=== PATIENT | female | born 1995 | race Caucasian/White ===

== ENCOUNTER 2019-11-17 17:00 | Emergency (ER) | payer OTHER ==
[2019-11-17 17:53] LABS: BASOPHILS % (AUTO) 0.5 %; EOSINOPHILS # (AUTO) 0.1 10^3/uL (0.0-0.7); EOSINOPHILS % (AUTO) 1.5 %; HGB - HEMOGLOBIN 13.9 g/dL (12.0-16.0); LYMPHOCYTES # (AUTO) 3.2 10^3/uL (1.5-3.5); LYMPHOCYTES % (AUTO) 40.3 %; MEAN CORPUSCULAR HEMOGLOBIN 31.2 pg (27.0-31.0); MEAN CORPUSCULAR HGB CONC 32.9 g/dL (32.0-36.0); MEAN CORPUSCULAR VOLUME 94.8 fL (81.0-99.0); MEAN PLATELET VOLUME 9.9 fL (7.9-10.8); MONOCYTES # (AUTO) 0.6 10^3/uL (0.0-1.0); MONOCYTES % (AUTO) 7.2 %; NEUTROPHILS % (AUTO) 50.2 %; PLT - PLATELET COUNT 232 10^3/uL (130-450); RED BLOOD COUNT 4.46 10^6/uL (4.20-5.40); RED CELL DISTRIBUTION WIDTH 11.6 % (12.0-15.0)
[2019-11-17 18:14] LABS: ALBUMIN 4.1 g/dL (3.2-5.5); ALBUMIN/GLOBULIN RATIO 1.3 (1.0-2.2); BILIRUBIN,TOTAL 0.5 mg/dL (0.2-1.0); CALCIUM 9.5 mg/dL (8.5-10.3); TOTAL PROTEIN 7.3 g/dL (6.7-8.2)
--- NOTE | 2019-11-17 19:40 | ED Physician Documentation ---
PD HPI SYNCOPE - Stated complaint Stated Complaint: FAINTING/FALL, BARRON, NECK PX - Chief complaint Chief Complaint: Neuro - History obtained from History obtained from: Patient - History of Present Illness Witnessed: Witnessed Timing - onset: Today Duration: Seconds Preceding symptoms: Diaphoresis, Light headed, Generalized weakness Associated symptoms: No: Seizure, Incontinant of urine, Incontinant of stool, Headache, Vision changes, Chest pain, Palpitations, Diaphoresis, Dyspnea, Nausea / vomiting, Abdominal pain Contributing factors: None Injury occurred: Fell, None Pain level max: 0 Pain level now: 0 Similar symptoms before: Has not had sx before Recently seen: Not recently seen - Additional information Additional information: 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 rapid return to baseline and presents asymptomatic. Review of Systems Constitutional: reports: Reviewed and negative Eyes: reports: Reviewed and negative Cardiac: reports: Reviewed and negative Respiratory: reports: Reviewed and negative GI: reports: Reviewed and negative : denies: Now EGA Musculoskeletal: reports: Reviewed and negative Neurologic: reports: Syncope. denies: Generalized weakness, Headache, Head injury PD PAST MEDICAL HISTORY - Past Medical History Past Medical History: No - Past Surgical History Past Surgical History: No - Allergies Allergies/Adverse Reactions: Allergies Allergy/AdvReac Type Severity Reaction Status Date / Time No Known Drug Allergies Allergy Verified 11/17/19 17:20 PD ED PE NORMAL - Vitals Vital signs reviewed: Yes - General General: Alert and oriented X 3, No acute distress, Well developed/nourished - HEENT HEENT: Atraumatic, PERRL, EOMI - Neck Neck: Supple, no meningeal sign, No bony TTP - Cardiac Cardiac: RRR, No murmur - Respiratory Respiratory: No respiratory distress, Clear bilaterally - Neuro Neuro: Alert and oriented X 3, 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 adviser 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, No motor deficit, No sensory deficit, Normal speech Eye Opening: Spontaneous Motor: Obeys Commands Verbal: Oriented GCS Score: 15 Results - Vitals Vitals: Oxygen O2 Source Room air - Labs Labs: Laboratory Tests 11/17/19 11/17/19 11/17/19 17:35 17:39 17:39 WBC 8.0 RBC 4.46 Hgb 13.9 Hct 42.3 MCV 94.8 MCH 31.2 H MCHC 32.9 RDW 11.6 L Plt Count 232 MPV 9.9 Neut # (Auto) 4.0 Lymph # (Auto) 3.2 [place] # (Auto) 0.6 Eos # (Auto) 0.1 Baso # (Auto) 0.0 Absolute Nucleated RBC 0.00 Nucleated RBC % 0.0 Sodium 137 Potassium 4.0 Chloride 104 Carbon Dioxide 25 Anion Gap 8.0 BUN 16 Creatinine 1.0 Estimated GFR (MDRD) 68 L Glucose 90 Calcium 9.5 Total Bilirubin 0.5 AST 20 ALT 19 Alkaline Phosphatase 31 L Troponin I High Sens Total Protein 7.3 Albumin 4.1 Globulin 3.2 Albumin/Globulin Ratio 1.3 Lipase 37 TSH Urine Color YELLOW Urine Clarity CLEAR Urine pH 6.5 Ur Specific [place] 1.020 Urine Protein NEGATIVE Urine Glucose (UA) NEGATIVE Urine Ketones NEGATIVE Urine Occult Blood NEGATIVE Urine Nitrite NEGATIVE Urine Bilirubin NEGATIVE Urine Urobilinogen 0.2 (NORMAL) Ur Leukocyte Esterase NEGATIVE Ur Microscopic Review NOT INDICATED Urine Culture Comments NOT INDICATED Urine HCG, Qual NEGATIVE 11/17/19 11/17/19 17:39 17:39 WBC RBC Hgb Hct MCV MCH MCHC RDW Plt Count MPV Neut # (Auto) Lymph # (Auto) [place] # (Auto) Eos # (Auto) Baso # (Auto) Absolute Nucleated RBC Nucleated RBC % Sodium Potassium Chloride Carbon Dioxide Anion Gap BUN Creatinine Estimated GFR (MDRD) Glucose Calcium Total Bilirubin AST ALT Alkaline Phosphatase Troponin I High Sens < 2.3 L Total Protein Albumin Globulin Albumin/Globulin Ratio Lipase TSH 2.29 Urine Color Urine Clarity Urine pH Ur Specific [place] Urine Protein Urine Glucose (UA) Urine Ketones Urine Occult Blood Urine Nitrite Urine Bilirubin Urine Urobilinogen Ur Leukocyte Esterase Ur Microscopic Review Urine Culture Comments Urine HCG, Qual PD MEDICAL DECISION MAKING - ED course Complexity details: reviewed results, re-evaluated patient, considered differential, d/w patient Departure - Departure Disposition: 01 Home, Self Care Clinical Impression: Syncope Condition: Good Instructions: ED Fainting Unkn Cause Discharge Date/Time: 11/17/19 20:27
[2019-11-17 19:46] LABS: BILIRUBIN,URINE NEGATIVE (NEGATIVE); GLUCOSE, URINE (UA) NEGATIVE (NEGATIVE); KETONES,URINE (UA) NEGATIVE (NEGATIVE); LEUKOCYTE ESTERASE, URINE NEGATIVE (NEGATIVE); NITRITE,URINE NEGATIVE (NEGATIVE); OCCULT BLOOD,URINE NEGATIVE (NEGATIVE); PH,URINE 6.5 PH (5.0-7.5); PROTEIN,URINE NEGATIVE (NEGATIVE); UROBILINOGEN,URINE 0.2 (NORMAL) E.U./dL (NORMAL)
[2019-11-17 19:50] LABS: CLARITY,URINE CLEAR (CLEAR); HCG UR QUAL NEGATIVE
[2019-11-17 20:11] VITALS: BP 117/74
== END 2019-11-17 20:27 | disposition home or self-care (01) ==
LOC: ED 17:00
DX: R55 Syncope and collapse (principal)
CPT/HCPCS: 36415; 80053; 81001; 81003; 81025; 83690; 84443; 84484; 85025; 87086; 93005; 99284

== ENCOUNTER 2021-03-09 20:07 | Emergency (ER) | payer OTHER ==
--- NOTE | 2021-03-09 21:03 | ED Physician Documentation ---
History of Present Illness - Stated complaint Stated Complaint: PELVIC PX - Chief complaint Chief Complaint: Abd Pain - History obtained from History obtained from: Patient - Additonal information Additional information: Patient comes emergency department chief complaint of left pelvic pain for the last couple of days. Patient states that she feels a cramping, pressure, bloated feeling in the area with intermittent pulses of a stabbing pain. Patient denies any vaginal discharge, bleeding, or fluid leakage. She states that she is not known to be . No dysuria or fevers. No nausea or vo miting. No change in her bowel habits, though she does note some discomfort in the same area when she has a bowel movement. Patient states this feels very similar to when she had an ovarian cyst on the right few years ago. No other complaints at this time. Review of Systems Ten Systems: 10 systems reviewed and negative Constitutional: reports: Reviewed and negative Eyes: reports: Reviewed and negative Ears: reports: Reviewed and negative Nose: reports: Reviewed and negative Throat: reports: Reviewed and negative Cardiac: reports: Reviewed and negative Respiratory: reports: Reviewed and negative GI: reports: Abdominal Pain. denies: Nausea, Vomiting : reports: Reviewed and negative. 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 : None HEENT: None Psych: Depression, Anxiety, Other Musculoskeletal: None Derm: None - Past Surgical History Past Surgical History: Yes HEENT: Other - Present Medications Home Medications: Ambulatory Orders Medication Instructions Recorded Confirmed Flaxseed Oil 1 cap PO DAILY 03/09/21 03/09/21 Melatonin/Pyridoxine [Melatonin 5 1 tab PO QPM PRN 03/09/21 03/09/21 mg Tablet] Sertraline [Zoloft] 25 mg PO DAILY 03/09/21 03/09/21 Tazarotene [Tazorac] 1 applic TOP DAILY 03/09/21 03/09/21 - Allergies Allergies/Adverse Reactions: Allergies Allergy/AdvReac Type Severity Reaction Status Date / Time No Known Drug Allergies Allergy Verified 03/09/21 20:09 - Social History Does the pt smoke?: No Smoking Status: Never smoker Does the pt drink ETOH?: Yes Does the pt have substance abuse?: No - Immunizations Immunizations are current?: Yes - POLST Patient has POLST: No PD ED PE NORMAL - Vitals Vital signs reviewed: Yes - General General: Alert and oriented X 3, No acute distress - HEENT HEENT: Atraumatic, PERRL, EOMI, Moist mucous membranes - Neck Neck: Supple, no meningeal sign - Cardiac Cardiac: RRR, No murmur - Respiratory Respiratory: No respiratory distress, Clear bilaterally - Abdomen Abdomen: Soft, Non distended, Other (Left pelvic tenderness, no rebound or guarding) - Back Back: No CVA TTP - Derm Derm: Normal color, Warm and dry, No rash - Extremities Extremities: No deformity, No edema, No calf tenderness / cord - Neuro Neuro: Alert and oriented X 3, child custody evaluator 2-12 intact, Normal speech - Psych Psych: Normal mood, Normal affect Results - Vitals Vitals: Vital Signs - 24 hr 03/09/21 20:09 Temperature 36.5 C Heart Rate 72 Respiratory 16 Rate Blood Pressure 140/89 H O2 Saturation 100 Oxygen O2 Source Room air - Rads (name of study) US pelvis Radiology: Prelim report reviewed (Hemorrhagic left ovarian cyst, no torsion.) PD MEDICAL DECISION MAKING - ED course Complexity details: reviewed results, re-evaluated patient, considered differential, d/w patient ED course: Patient was worked up with urinalysis, test and ultrasound of the pelvis. Departure - Departure Disposition: 01 Home, Self Care Clinical Impression: Ovarian cyst Qualifiers: Laterality: left Qualified Code(s): N83.202 - Unspecified ovarian cyst, left side Condition: Stable Instructions: ED Cyst Ovarian Comments: Your ultrasound shows a left ovarian cyst. Most likely because of the pain you have been having. Ovarian cysts do tend to fluctuate in size depending on what point you were in your cycle, and it is most likely that the symptoms will down. However, if you have escalating pain over the next few weeks or you do not notice any resolution of symptoms, you should consider following up with your converter operator to discuss other treatment options. If you develop severe, unremitting pain that lasts for more than 10 minutes, please come to the emergency department immediately.
[2021-03-09 22:15] VITALS: BP 135/84
--- NOTE | 2021-03-10 08:22 | Ultrasound Report ---
PROCEDURE: Pelvic w/Transvag+Doppler Comp INDICATIONS: pelvic pain, R TECHNIQUE: Real-time scanning was performed of the pelvic organs, with image documentation. Additional endovagi nal scanning was necessary due to incomplete visualization of the adnexal and endometrial structures by transabdominal scanning. COMPARISON: None. FINDINGS: No pathologic free abdominal fluid. Uterus: Uterus is normal in size at 7.4 x 3.7 x 4.3 cm. The endometrium measures 7.1 mm in combined thickness. There is no endometrial mass or fluid. No discrete uterine fibroid. Intrauterine device i s noted in its normal central endometrial location. Ovaries: Right ovary measures 3.9 x 4 x 2.1 cm in size and is within normal limits. Left ovary measu res 4.9 x 3 x 2.5 cm in size with complex appearing cystic structure within left ovary measures 2.6 x 2.7 x 2.6 cm in size. Small amount of free fluid in left adnexa is seen. Normal arteriovenous flow s een in bilateral ovaries on color Doppler images. IMPRESSION: 1. No evidence of ovarian torsion. No solid appearing ovarian lesion. Likely hemorrhagic cyst in left ovary as above with small amount of free fluid in left adnexa. 2. Normal-appearing uterus and endometrium. Intrauterine device is seen in its normal central endomet rial location. Agree with preliminary reading. Reviewed by: Everette Brito MD on 03/10/2021 8:21 AM PDT Approved by: Everette Brito MD on 03/10/2021 8:21 AM PDT Station ID: [id number]
== END 2021-03-09 22:00 | disposition home or self-care (01) ==
LOC: ED 20:07
DX: N83.202 Unspecified ovarian cyst, left side (principal)
CPT/HCPCS: 93975; 99284

== ENCOUNTER 2021-09-20 11:17 | Emergency (ER) | payer OTHER ==
[2021-09-20 11:56] VITALS: BP 134/92
[2021-09-20] MEDS ORDERED: LIDOCAINE 1% 2 ML VIAL SUBQ STA (12:16)
--- NOTE | 2021-09-20 12:59 | ED Physician Documentation ---
PD HPI UPPER EXT INJURY - Stated complaint Stated Complaint: R INDEX FINGER INJURY - Chief complaint Chief Complaint: Laceration - History obtained from History obtained from: Patient - Additonal information Additional information: She hurt her right index finger while chopping wood a few days ago. A piece of wood hit it on the dorsum of the right index finger at the level of the PIP she is up-to-date on tetanus. 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 : None HEENT: None Psych: Depression, Anxiety, Other Musculoskeletal: None Derm: None - Past Surgical History Past Surgical History: Yes HEENT: Other - Present Medications Home Medications: Ambulatory Orders Medication Instructions Recorded Confirmed HYDROcod/ACETAM 5/325 [[place] 5/325] 1 - 2 tablet PO Q6H PRN #10 tablet 03/09/21 Melatonin/Pyridoxine [Melatonin 5 1 tab PO QPM PRN 03/09/21 03/09/21 mg Tablet] Sertraline [Zoloft] 25 mg PO DAILY 03/09/21 03/09/21 Tazarotene [Tazorac] 1 applic TOP DAILY 03/09/21 03/09/21 flaxseed oiL [Flaxseed Oil] 1 cap PO DAILY 03/09/21 03/09/21 - Allergies Allergies/Adverse Reactions: Allergies Allergy/AdvReac Type Severity Reaction Status Date / Time No Known Drug Allergies Allergy Verified 09/20/21 11:52 - Social History Does the pt smoke?: No Smoking Status: Never smoker Does the pt drink ETOH?: Yes Does the pt have substance abuse?: No - Immunizations Immunizations are current?: Yes - POLST Patient has POLST: No PD ED PE NORMAL - Vitals Vital signs reviewed: Yes - General General: Alert and oriented X 3, No acute distress - Extremities Extremities: Other (All laceration on the dorsum the right index finger PIP that is really not deep enough to harbor a foreign body and she has no foreign body sensation. She has full range of motion albeit with some pain at the PIP. No deformity.) - Neuro Neuro: Alert and oriented X 3, Normal speech Results - Vitals Vitals: Vital Signs - 24 hr 09/20/21 11:52 Temperature 37 C Heart Rate 72 Respiratory 16 Rate Blood Pressure 134/92 H O2 Saturation 99 Oxygen O2 Source Room air - Rads (name of study) 3v R index finger Radiology: EMP read contemporaneously (no frx) Procedures - Splint (location) R index finger Splint applied by: Tech Type of splint: Metal foam finger splint Other: Patient tolerated well, No complications, Neurovascular intact Departure - Departure Disposition: 01 Home, Self Care Clinical Impression: Contusion of right index finger Qualifiers: Encounter type: initial encounter Damage to nail status: without damage Qualified Code(s): S60.021A - Contusion of right index finger without damage to nail, initial encounter Abrasion of right index finger Qualifiers: Encounter type: initial encounter Qualified Code(s): S60.410A - Abrasion of right index finger, initial encounter Condition: Good Record reviewed to determine appropriate education?: Yes Instructions: ED Abrasion Comments: No fracture on x-ray, continue to splint as needed for comfort and for the abrasion just soap and water and antibiotic ointment. Return for new or worsening symptoms. Discharge Date/Time: 09/20/21 13:10
--- NOTE | 2021-09-20 13:06 | XRAY Report ---
PROCEDURE: Finger(s) RT INDICATIONS: Trauma TECHNIQUE: AP hand, 2 views of the second finger(s) acquired. COMPARISON: None FINDINGS: Bones: No fractures or dislocations. No suspicious bony lesions. Soft tissues: No suspicious soft tissue calcifications. IMPRESSION: No gross acute second finger fracture or dislocation. No radiopaque foreign body is seen. Reviewed by: Everette Brito MD on 09/20/2021 1:04 PM [facility] Approved by: Everette Brito MD on 09/20/2021 1:04 PM [facility] Station ID: [id number]
== END 2021-09-20 13:10 | disposition home or self-care (01) ==
LOC: ED 11:17
DX: S60.410A Abrasion of right index finger, initial encounter (principal); W45.8XXA Other foreign body or object entering through skin, initial encounter; Y93.H9 Activity, other involving exterior property and land maintenance, building and construction
CPT/HCPCS: 99282; 99283

== ENCOUNTER 2021-11-15 08:03 | Outpatient (CLI) | payer OTHER ==
[2021-11-15] MEDS ORDERED: GADOBUTROL 10 MMOL/10 ML VIAL ONE (08:12)
[2021-11-15] MEDS ORDERED: GADOBUTROL 10 MMOL/10 ML VIAL IVP ONE (16:14)
--- NOTE | 2021-11-15 16:50 | MRI Report ---
PROCEDURE: Brain W/WO INDICATIONS: ELEVATED PROLACTIN CONTRAST: IV CONTRAST: Gadavist ml: 79 TECHNIQUE: Noncontrast sagittal and axial FLAIR, axial gradient echo, axial diffusion and ADC through the brain. Thin-slice sagittal and coronal T1 spin echo, coronal T2 fast spin echo through the pituitary. Aft er the administration contrast, optional dynamic coronal T1 spin echo, thin-slice coronal and sagitta l T1 spin echo images through the pituitary fossa; axial T1 spin echo with fat saturation through the brain. COMPARISON: None. FINDINGS: Image quality: Excellent. Pituitary Gland: Pituitary gland is normal in size and contour for a female of reproductive age. Pos terior pituitary bright spot is normally situated. There is a small, approximately 2 mm focus of slig htly delayed postcontrast enhancement in the inferior left perimedian margin of the pituitary gland c oncerning for a micro-adenoma. The pituitary infundibulum is midline and demonstrates normal postcont rast enhancement. Optic chiasm is normal. No suprasellar masses. Cavernous sinus enhances normally. CSF Spaces: Ventricles are normal in size and shape. Basal cisterns are patent. No extra-axial flu id collections. Brain: No intracranial bleeds or mass effects. No abnormal intracranial enhancement. Phillip-white ma tter interface is intact. Diffusion weighted images demonstrate no acute ischemic insults. Brainste m is normal. Normal intravascular flow voids are present. Dural sinuses and shape normal postcontras t enhancement. Incidental note made of a Skull and face: Calvarial marrow is normal in signal. Orbits appear normal. Sinuses: Sinuses and mastoids are clear. IMPRESSION: Small 2 mm focus of slightly delayed postcontrast enhancement in the inferior and left p aramedian pituitary gland suspicious for pituitary microadenoma.. Reviewed by: Emily Fletcher MD, PhD on 11/15/2021 4:48 PM PST Approved by: Emily Fletcher MD, PhD on 11/15/2021 4:48 PM PST Station ID: [id number]
== END 2021-11-15 08:04 | disposition home or self-care (01) ==
LOC: DI 08:03
PROVIDERS: ATTEND Student in an Organized Health Care Education/Training Program
DX: R90.89 Other abnormal findings on diagnostic imaging of central nervous system (principal)
CPT/HCPCS: 70553; A9585

== ENCOUNTER 2022-10-09 07:05 | Outpatient (CLI) | payer OTHER ==
[~2022-10-09 07:05] MED LIST: GADOBUTROL 10 MMOL/10 ML VIAL ONE; GADOBUTROL 7.5 MMOL/7.5 ML VIAL ONE
[2022-10-09] MEDS ORDERED: GADOBUTROL 7.5 MMOL/7.5 ML VIAL IVP ONE (13:59)
--- NOTE | 2022-10-09 15:49 | MRI Report ---
PROCEDURE: BRAIN W/WO INDICATIONS: PITUITARY MICROADENOMA TECHNIQUE: Noncontrast axial T1 spin echo, axial T2 fast spin echo, sagittal and axial FLAIR, coronal T2 fast sp in echo, axial gradient echo, axial diffusion and ADC through the brain. After the administration of contrast, axial and coronal T1 spin echo with fat saturation through the brain. COMPARISON: 11/15/2021 FINDINGS: Image quality: Excellent. CSF spaces: Basal cisterns are patent. No extra-axial fluid collections. Ventricles are normal in size and shape. Brain: No midline shift. No intracranial bleeds or masses. No abnormal intracranial enhancement. There is cerebral volume loss for age. There is periventricular white matter chronic small vessel is chemic change. The brainstem appears normal. Diffusion-weighted images demonstrate no acute ischemi c insults. No chronic ischemic insults. Normal intravascular flow voids are present. Skull and face: Calvarial marrow is normal in signal. Orbits appear normal. Sinuses: Sinuses and mastoids appear clear. IMPRESSION: Previously questioned focus of delayed enhancement in the pituitary is no longer demonstrated. Reviewed by: Herbie Peralta MD on 10/09/2022 3:48 PM PST Approved by: Herbie Peralta MD on 10/09/2022 3:48 PM PST Station ID: [id number]
== END 2022-10-09 07:06 | disposition home or self-care (01) ==
LOC: DI 07:05
PROVIDERS: ATTEND Neurological Surgery
DX: D35.2 Benign neoplasm of pituitary gland (principal)
CPT/HCPCS: 70553; A9585

== ENCOUNTER 2023-10-24 10:02 | Emergency (ER) | payer OTHER ==
[2023-10-24 10:25] VITALS: BP 142/98; O2SAT 99
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
== END 2023-10-24 10:45 | disposition home or self-care (01) ==
LOC: ED 10:02
DX: S39.012A Strain of muscle, fascia and tendon of lower back, initial encounter (principal); S16.1XXA Strain of muscle, fascia and tendon at neck level, initial encounter; S76.011A Strain of muscle, fascia and tendon of right hip, initial encounter; V49.49XA Driver injured in collision with other motor vehicles in traffic accident, initial encounter; Y93.89 Activity, other specified; Y92.413 State road as the place of occurrence of the external cause
CPT/HCPCS: 99282; 99283

== ENCOUNTER 2024-04-08 17:03 | Emergency (ER) | payer OTHER ==
[2024-04-08 17:25] VITALS: BP 140/82; O2SAT 100
--- NOTE | 2024-04-08 18:35 | XRAY Report ---
PROCEDURE: Finger(s) LT INDICATIONS: Trauma TECHNIQUE: AP hand, 2 views of the fourth finger(s) acquired. COMPARISON: None. FINDINGS: Bones: No acute displaced fracture. No dislocation. Soft tissues: No suspicious calcifications. IMPRESSION: No acute radiographic abnormality. If there is high concern for occult injury, consider repeat radiog pranav or cross-sectional imaging. Reviewed by: Pipo Roach MD on 04/08/2024 6:34 PM PDT Approved by: Pipo Roach MD on 04/08/2024 6:34 PM PDT Station ID: [id number]
--- NOTE | 2024-04-08 20:11 | ED Physician Documentation ---
PD HPI UPPER EXT INJURY - Stated complaint Stated Complaint: L FINGER INJ - Chief complaint Chief Complaint: Trauma Ext - History obtained from History obtained from: Patient - Additonal information Additional information: HPI from patient. Patient c/o left ring finger pain since injury yesterday. Patient was outdoors and felt something on her leg, realized it was not only an ant on her leg but that she was standing on an ant hill and had several ants on both legs. She thus was kicking and swatting at her legs, accidentally kicked her left ring finger as a result. Pain is exacerbated with movement of the finger. Patient is right hand dominant Review of Systems Musculoskeletal: reports: Extremity pain, Extremity swelling Neurologic: denies: Focal weakness, Numbness PD PAST MEDICAL HISTORY - Past Medical History Past Medical History: Yes Cardiovascular: None Respiratory: None Neuro: None Endocrine/Autoimmune: None GI: None [employer]: Ovarian cysts : None HEENT: None Psych: Depression, Anxiety, Other Musculoskeletal: None Derm: None - Past Surgical History Past Surgical History: Yes HEENT: Other - Present Medications Home Medications: Ambulatory Orders Medication Instructions Recorded Confirmed Metaxalone 400 mg PO DAILY PRN 10/24/23 10/24/23 Venlafaxine [Effexor] 37.5 mg PO DAILY 10/24/23 10/24/23 traMADol [Ultram] 25 mg PO Q4-6H PRN 10/24/23 10/24/23 - Allergies Allergies/Adverse Reactions: Allergies Allergy/AdvReac Type Severity Reaction Status Date / Time No Known Drug Allergies Allergy Verified 04/08/24 17:17 - Social History Does the pt smoke?: No Smoking Status: Never smoker Does the pt drink ETOH?: Yes Does the pt have substance abuse?: No - Immunizations Immunizations are current?: Yes - POLST Patient has POLST: No PD ED PE NORMAL - Vitals Vital signs reviewed: Yes - General General: Alert and oriented X 3, No acute distress, Well developed/nourished - Neuro Neuro: No motor deficit (full strength left ring finger extension. full strength flexion at MCP joint: flexion tested with isolation of MCP, PIP, DIP joints; there is slight decreased strength flexion PIP and DIP joints but suspect due to pain), No sensory deficit (LTS intact distal left ring finger) Results - Vitals Vitals: Vital Signs - 24 hr 04/08/24 17:13 Temperature 36.6 C Heart Rate 78 Respiratory 16 Rate Blood Pressure 140/82 H O2 Saturation 100 Oxygen O2 Source Room air - Rads (name of study) xrays left fourth finger Relevant Findings:: Prelim report reviewed, See rad report PD Medical Decision Making - ED course Complexity details: reviewed results, considered differential, d/w patient ED course: No abnormality on left fourth finger xrays. Suspect sprain. Results d/w patient along with prognosis and f/u recommendations. Placed in finger splint for comfort and to speed healing. Departure - Departure Disposition: 01 Home, Self Care Clinical Impression: Finger sprain Condition: Good Instructions: ED Sprain Finger Follow-Up: MANDY MENDOZA MD [Primary Care Provider] - Comments: No evidence of acute injury on xrays; specifically, no evidence of fracture, dislocation. A splint is being provided for comfort and to speed healing; wear the splint during the day for the next 5 days, but can continue longer than 5 days if it feels like it is still helping. You should follow up with your primary care provider in 4-5 days if you do not have resolution of the pain and swelling, and/or if you have limitation in range of motion after 5 days (should be able to fully extend and flex the finger without pain or weakness).
== END 2024-04-08 20:21 | disposition home or self-care (01) ==
LOC: ED 17:03
DX: S63.615A Unspecified sprain of left ring finger, initial encounter (principal); X58.XXXA Exposure to other specified factors, initial encounter; Z79.899 Other long term (current) drug therapy
CPT/HCPCS: 99282; 99283